=== PATIENT | female | born 1990 | race Hispanic/Latino ===

== ENCOUNTER 2021-01-31 19:28 | Emergency (ER) | payer SELFPAY ==
[2021-01-31] MEDS ORDERED: Ondansetron PF 4 MG/2 ML Vial ONE (19:56)
[2021-01-31] MEDS ORDERED: Morphine 4 MG/ML VIAL ONE ×2 (19:56→20:44)
[2021-01-31 20:22] LABS: #Eosinphils 0.4 10x3/uL (0.0-0.5); #Monocytes 0.5 10x3/uL (0.0-1.1); #Neutrophils 8.8 10x3/uL (1.5-8.4); %Basophils 0.3 % (0.0-2.0); %Eosinophils 3.1 % (0.0-6.0); %Lymphocytes 17.9 % (18.0-47.0); %Monocytes 4.1 % (0.0-10.0); %Neutrophils 74.3 % (40.0-75.0); Hemoglobin 11.3 g/dL (12.0-15.5); Mean Corpuscular HGB CONC 32.3 g/dL (32.0-36.0); Mean Corpuscular Hemoglobin 28.1 pg (27.0-33.0); Mean Corpuscular Volume 87.1 fl (81.6-98.3); Mean Platelet Volume 9.6 fl (7.4-10.4); Platelet Count 501 10x3/uL (150-450); RBC Distribution Width 14.4 % (11.5-14.5); Red Blood Cell (RBC) Count 4.02 10x6/uL (3.90-5.03); White Blood Cell (WBC) Count 11.8 10x3/uL (3.5-10.5)
[2021-01-31 20:25] LABS: BHCG - Serum Negative (NEGATIVE); Pregs Control Background? CLEAR/WHITE (CLR/WHITE); Pregs Control Bar Appear? YES (CONTROL BAR)
[2021-01-31 20:29] LABS: ALT (SGPT) 45 U/L (8-55); AST (SGOT) 17 U/L (5-34); Alkaline Phosphatase 142 U/L (40-110); Anion Gap 14 mmol/L (10-20); BUN (Urea Nitrogen) 11 mg/dL (7.0-18.7); Bilirubin, Total 0.3 mg/dL (0.2-1.2); Calc. Creatinine Clearance 0 mL/min (70-130); Calcium 10.2 mg/dL (7.8-10.44); Carbon Dioxide 21 mmol/L (22-29); Chloride 107 mmol/L (98-107); Globulin 3.5 g/dL (2.4-3.5); Glucose 101 mg/dL (70-105); Potassium 3.4 mmol/L (3.5-5.1); Protein, Total 7.5 g/dL (6.0-8.3); Sodium 139 mmol/L (136-145)
[2021-02-01] MEDS ORDERED: Morphine 4 MG/ML VIAL ONE (00:49)
== END 2021-02-01 01:00 | disposition short-term general hospital (02) ==
LOC: CSHERS 19:28
DX: T81.49XA Infection following a procedure, other surgical site, initial encounter (principal); L02.415 Cutaneous abscess of right lower limb; M86.8X9 Other osteomyelitis, unspecified sites
CPT/HCPCS: 80053; 84703; 85025; 85652; 86140; 96374; 96375; 96376; J2270; J2405

== ENCOUNTER → 2021-02-22 | Day surgery (SDC) | payer SELFPAY ==
[~2021-02-22] MED LIST: Lidocaine 1% (PF) 30 ML VIAL ONE; Lidocaine 1% PF 5 ML VIAL ONE; cefTRIAXone\\ROCEPHIN 2 GM VIAL ONE
== END ==
LOC: CSHER/OP 18:06
PROVIDERS: ATTEND Internal Medicine Infectious Disease
DX: T81.49XA Infection following a procedure, other surgical site, initial encounter (principal)
CPT/HCPCS: J0696; J2001

== ENCOUNTER → 2021-02-23 | Day surgery (SDC) | payer SELFPAY ==
[~2021-02-23] MED LIST changes: -Lidocaine 1% PF 5 ML VIAL ONE; +cefTRIAXone\\ROCEPHIN 1 GM VIAL ONE
== END ==
LOC: CSHER/OP 16:03
PROVIDERS: ATTEND Emergency Medicine
DX: T81.49XA Infection following a procedure, other surgical site, initial encounter (principal)

== ENCOUNTER → 2021-02-24 | Day surgery (SDC) | payer SELFPAY | LOC: CSHSDC/OP 15:27 | PROVIDERS: ATTEND Internal Medicine Infectious Disease | DX: T81.49XA Infection following a procedure, other surgical site, initial encounter (principal) ==

== ENCOUNTER 2021-09-26 14:57 | Outpatient (CLI) | payer OTHER | END 2021-09-26 14:58 | disposition home or self-care (01) | LOC: CSHCT 14:57 | PROVIDERS: ATTEND Orthopaedic Surgery | DX: S72.351D Displaced comminuted fracture of shaft of right femur, subsequent encounter for closed fracture with routine healing (principal); S72.411D Displaced unspecified condyle fracture of lower end of right femur, subsequent encounter for closed fracture with routine healing; Z98.890 Other specified postprocedural states ==

== ENCOUNTER 2023-04-09 16:09 | Emergency (ER) | payer SELFPAY ==
[2023-04-09] MEDS ORDERED: Boostrix 0.5 ML (Tdap) VIAL (>/=7 yrs of age) ONE (17:50)
== END 2023-04-09 18:12 | disposition home or self-care (01) ==
LOC: CSHERS 16:09
DX: L73.9 Follicular disorder, unspecified (principal); Z60.3 Acculturation difficulty; Z23 Encounter for immunization
CPT/HCPCS: 87070; 87077; 87205; 90471; 90715